=== PATIENT | male | born 1985 | race Two or more races ===

== ENCOUNTER 2024-08-02 08:30 | Emergency (ER) | payer OTHER, SELFPAY ==
--- NOTE | 2024-08-02 08:35 | EKG_ITS ---
[facility] Test Date: 2024-08-02 Pat Name: VERENA BONILLA Department: Room: - Gender: Male [place] [employer]: : [id number] Requested By: ED Temporary Provider Order Number: [id number] Reading MD: ED Temporary Provider Measurements Intervals [place] Rate: 68 P: 45 [place]: 166 QRS: 7 QRSD: 100 T: 21 QT: 377 QTc: 402 Interpretive Statements SINUS RHYTHM POSSIBLE RIGHT VENTRICULAR CONDUCTION DELAY [RSR (QR) IN V1/V2] No previous ECG available for comparison /[id number]
[2024-08-02 08:40] VITALS: BP 145/96; PULSE 69; RESP 19; TEMP 36.7; O2SAT 98
--- NOTE | 2024-08-02 08:51 | XR_ITS ---
Examination: PA lateral chest 2 views TECHNIQUE: Upright PA lateral chest 2 views Exam date and time: August 02, 2024 1005 hours INDICATIONS: Chest pain today. FINDINGS: Normal heart size Lungs are clear. The osseous structures are intact IMPRESSION: No active disease
--- NOTE | 2024-08-02 08:52 | EDRME_ITS ---
Rapid Medical Screening Exam RME Arrival date/time: 08/02/24 08:30 38-year-old male with a history of CVA presents to the emergency room with a chief complaint of right sided sternal chest pain that radiates to his right arm x 3 hours I have greeted and performed a focused initial assessment of this patient. A c omprehensive ED assessment and evaluation of the patient, analysis of all test results, and completion of the medical decision making process will be conducted by additional ED providers. Chief Complaint: Chest Pain Vital signs: Vital Signs Temperature 98.1 F 08/02/24 08:40 Pulse Rate 69 08/02/24 08:40 Respiratory Rate 19 08/02/24 08:40 Blood Pressure 145/96 H 08/02/24 08:40 Pulse Oximetry (%) 98 08/02/24 08:40 Oxygen Delivery Method Room Air 08/02/24 08:40 Vital signs reviewed by provider: Yes
[2024-08-02 09:20] LABS: Collection Type, Urine Clean Catch; Squamous Epithelial Cell,Urine 0 /hpf (0-5)
[2024-08-02 09:29] LABS: Bilirubin,Urine Negative (Negative); Blood,Urine Negative (Negative); Clarity,Urine Clear (Clear/Hazy); Color,Urine Lt-Yellow (Lt Yel-Yel); Glucose, Urine Negative (Negative); Ketones,Urine Negative (Negative); Leukocyte Esterase,Urine Negative (Negative); Nitrite,Urine Negative (Negative); Protein,Urine Negative (Neg - Trace); RBC,Urine < 1 /hpf (0-3); Specific Gravity,Urine 1.025 (1.001-1.035); Urobilinogen,Urine Negative mg/dL (0.0-1.0); WBC,Urine 1 /hpf (0-5)
[2024-08-02 09:35] LABS: Amphetamine/Methamp Scrn,U Negative (Negative); Barbiturate Screen,Urine Negative (Negative); Benzodiazepines Screen,Urine Negative (Negative); Benzoylecgonine Screen, Ur Negative (Negative); Fentanyl Screen,Urine Negative (Negative); Opiate Screen,Urine Negative (Negative); THC Screen,Urine Negative (Negative)
--- NOTE | 2024-08-02 11:25 | PC.NURSE ---
PT CALLED 4 TIMES W/ NO ANSWER. PT CALLED AT 0950, 1010, 1027, 1125. PT ELOPED.
== END 2024-08-02 11:27 | disposition left against medical advice (07) ==
LOC: SERX 09:13
PROVIDERS: Nurse Practitioner Family; Emergency Provider Family Medicine
DX: R07.2 Precordial pain (principal); R94.31 Abnormal electrocardiogram [ECG] [EKG]
CPT/HCPCS: 71046; 80053; 80307; 81001; 83735; 83880; 84484; 85025; 85610; 85730; 93005; 99281